=== PATIENT | female | born 1980 | race Caucasian/White ===

== ENCOUNTER 2021-11-17 10:05 | Emergency (ER) | payer SELFPAY ==
[~2021-11-17] VITALS: Ht 160 cm; Wt 61.2 kg
[2021-11-17 10:05] VITALS: BP 119/77
[~2021-11-17 10:05] MED LIST: HYDR-4384 PO; LEVO500T23 PO
--- NOTE | 2021-11-17 10:19 | NUR ---
DR BULLOCK AT THE BEDSIDE
--- NOTE | 2021-11-17 10:26 | NUR ---
Patient discharged to home in stable condition. Written and verbal after care instructions given. Patient verbalizes understanding of instruction.
== END 2021-11-17 10:26 | disposition home or self-care (01) ==
LOC: ER 10:11
DX: M54.2 Cervicalgia (principal); M54.9 Dorsalgia, unspecified; R51.9 Headache, unspecified; F17.200 Nicotine dependence, unspecified, uncomplicated; Z98.890 Other specified postprocedural states; V49.49XA Driver injured in collision with other motor vehicles in traffic accident, initial encounter; Y93.89 Activity, other specified; Y92.413 State road as the place of occurrence of the external cause; Y99.8 Other external cause status